=== PATIENT | male | born 1990 | race African-American/Black ===

== ENCOUNTER 2024-04-20 15:27 | Emergency (ER) | payer BC, MEDICAID ==
[~2024-04-20] VITALS: Ht 180.3 cm; Wt 100.0 kg
[2024-04-20 15:28] VITALS: O2SAT 99
[2024-04-20] MEDS ORDERED: LEVETIRACETAM 500MG PREMIX 100 ML IV ONE (16:00)
[2024-04-20] MEDS ORDERED: MIDAZOLAM HCL 2 MG/2 ML VIAL IV ONE (16:00)
[2024-04-20] MEDS: LORAZEPAM 2MG/ML INJ IM ONE (16:03)
[2024-04-20] MEDS: LEVETIRACETAM 1000MG PREMIX 100 ML IV ONE (16:37)
[2024-04-20 16:43] LABS: BASOPHILS % 0.6 % (0.0-2.0); EOSINOPHILS % 0.9 % (0.0-5.0); HEMATOCRIT. 44.3 % (42.0-52.0); HEMOGLOBIN. 14.8 g/dL (14.0-18.0); LYMPHOCYTES % 28.1 % (20.0-50.0); MEAN CORPUSCULAR HEMOGLOBIN 29.6 pg (28.0-32.0); MEAN CORPUSCULAR HGB CONC 33.4 g/dL (31.0-37.0); MEAN CORPUSCULAR VOLUME 88.8 fL (80.0-94.0); MEAN PLATELET VOLUME 8.3 fl (7.4-10.4); MONOCYTES % 10.3 % (2.0-8.0); NEUTROPHILS % 60.1 % (40.0-76.0); PLATELET 157 x1000/uL (130-400); RED BLOOD CELL COUNT 4.99 mill/uL (4.7-6.1); RED CELL DISTRIBUTION WIDTH 14.2 % (11.6-14.6); WHITE BLOOD COUNT 14.4 x1000/uL (4.5-11.0)
[2024-04-20 16:53] LABS: CHLORIDE 105 mEq/L (98-107); SODIUM 141 mEq/L (136-145)
[2024-04-20 16:54] LABS: CALCIUM 9.8 mg/dL (8.7-10.4); CARBON DIOXIDE 22 mEq/L (21-32)
[2024-04-20 16:59] LABS: GLUCOSE 124 mg/dL (70-105); UREA NITROGEN BLOOD 14 mg/dL (9-23)
[2024-04-20 17:01] LABS: AMMONIA < 17 uMol/L (<32)
[2024-04-20 18:15] VITALS: TEMP 37.05852
[2024-04-20 19:17] VITALS: BP 117/76; PULSE 80; RESP 19; O2SAT 100
== END 2024-04-20 19:30 | disposition home or self-care (01) ==
LOC: ER 15:27
DX: R56.9 Unspecified convulsions (principal); F84.0 Autistic disorder
CPT/HCPCS: 99284; 96374; 80048; 82140; 85025; 36415; 96372; J1953; J2060; J2250